=== PATIENT | female | born 1935 | race African-American/Black ===

== ENCOUNTER 2019-04-01 18:43 | Emergency (ER) | payer MEDICARE, MEDICAID ==
[~2019-04-01] VITALS: Ht 175.3 cm; Wt 70.0 kg
[~2019-04-01 18:43] MED LIST: AMLO5TAB4 PO; ASPI-1158 PO; FOLI-43 PO; GABA300C PO; HUMALIN; KEPP500 PO; LANTUS SQ; LEVO500T2 PO; LIPITOR PO; OMEP20CA4 PO; PENT400T29 PO; PIOG45TA5 PO; TEGRETOL
[2019-04-01] MEDS ORDERED: SODIUM CHLORIDE 0.9% 1,000 ML IV ONE (19:26)
[2019-04-01 20:38] LABS: BASOPHILS % 0.5 % (0.0-2.0); EOSINOPHILS % 0.4 % (0.0-5.0); HEMATOCRIT. 32.5 % (36.0-48.0); HEMOGLOBIN. 10.8 g/dL (12.0-16.0); LYMPHOCYTES % 20.3 % (20.0-50.0); MEAN CORPUSCULAR HEMOGLOBIN 30.5 pg (28.0-32.0); MEAN CORPUSCULAR VOLUME 91.7 fL (81.0-99.0); MEAN PLATELET VOLUME 9.5 fl (7.4-10.4); MONOCYTES % 9.8 % (2.0-8.0); PLATELET 174 x1000/uL (130-400); RED BLOOD CELL COUNT 3.54 mill/uL (4.2-5.4); RED CELL DISTRIBUTION WIDTH 13.6 % (11.6-14.6)
[2019-04-01 20:39] LABS: CHLORIDE 109 mEq/L (98-107)
[2019-04-01 22:50] VITALS: BP 131/85
== END 2019-04-01 23:05 | disposition home or self-care (01) ==
LOC: ER 18:43
DX: R53.1 Weakness (principal); R10.33 Periumbilical pain; E11.9 Type 2 diabetes mellitus without complications; I10 Essential (primary) hypertension; I25.2 Old myocardial infarction; Z79.82 Long term (current) use of aspirin; Z79.899 Other long term (current) drug therapy; Z91.041 Radiographic dye allergy status
CPT/HCPCS: 36415; 74176; 80053; 83690; 85025; 93005; 99284; J7030